=== PATIENT | female | born 1970 | race Caucasian/White ===

== ENCOUNTER 2017-04-19 01:49 | Inpatient (IN) | payer OTHER ==
[2017-04-19] VITALS (7 sets, daily range): BP systolic 143–194; BP diastolic 74–111
[~2017-04-19] VITALS: Ht 157.5 cm; Wt 72.1 kg
[2017-04-19] MEDS ORDERED: ONDANSETRON 4 MG/2 ML VIAL IVP ONE ×2 (02:00→03:15)
[2017-04-19] MEDS ORDERED: NACL 0.9% 1,000 ML IV ONE (02:00)
--- NOTE | 2017-04-19 02:00 | NUR ---
TO ER BED 7
[2017-04-19 02:20] LABS: HEMATOCRIT 48.7 % (36-48); HEMOGLOBIN 16.3 g/dL (12.0-16.0); MEAN CORPUSCULAR HEMOGLOBIN 32 pg (27-31); MEAN CORPUSCULAR HGB CONC 34 g/dL (33-37); MEAN CORPUSCULAR VOLUME 95 fL (80-94); PLATELET COUNT (AUTO) 233 K/uL (140-450); RED BLOOD CELL COUNT(AUTO) 5.14 MIL/uL (4.20-5.40); RED CELL DISTRIBUTION WIDTH 13.8 % (11.6-13.7); WHITE BLOOD COUNT (AUTO) 10.7 K/uL (4.8-10.8)
[2017-04-19 02:33] LABS: LYMPHOCYTES % (MANUAL) 10 % (20-46); MONOCYTES % (MANUAL) 7 % (5-12)
[2017-04-19 02:35] LABS: ALBUMIN 4.2 g/dL (3.4-5.0); ANION GAP 19.1 (8-16); CARBON DIOXIDE 25.8 mmol/L (21-32); CREATININE 1.3 mg/dL (0.6-1.3); TOTAL BILIRUBIN 2.6 mg/dL (0.0-1.0)
[2017-04-19 02:37] LABS: POTASSIUM 1.9 mmol/L (3.5-5.1)
[2017-04-19] MEDS ORDERED: POTASSIUM CHL 20 MEQ/NACL 0.9% 1,000 ML IV ONE ×2 (02:45→03:40)
[2017-04-19 02:48] LABS: PROTHROMBIN TIME 11.6 secs (10.8-13.4)
--- NOTE | 2017-04-19 03:10 | NUR ---
Patient being evaluated by physician at bedside.
[2017-04-19] MEDS ORDERED: MORPHINE SULFATE 4 MG/ML SYR IVP ONE (03:15)
[2017-04-19] MEDS ORDERED: MAG SULF 2000 MG/WATER PREMIX 50 ML IV ONE (03:20)
[2017-04-19] MEDS ORDERED: DOCUSATE SODIUM 100 MG GELCAP PO PRN (03:30)
[2017-04-19] MEDS ORDERED: ONDANSETRON 4 MG/2 ML VIAL IM/IVP PRN (03:30)
[2017-04-19] MEDS ORDERED: ACETAMINOPHEN 325 MG TAB PO PRN (03:30)
[2017-04-19] MEDS ORDERED: PROMETHAZINE 25 MG/ML VIAL IVP ONE (03:35)
--- NOTE | 2017-04-19 03:36 | NUR ---
Patient will be admitted to care of dr. Sherman. Admited to Telemetry. Will go to room 108 A. Belongings list completed.
[2017-04-19] MEDS ORDERED: MORPHINE SULFATE 2 MG/ML SYR IVP PRN (03:40)
[2017-04-19] MEDS ORDERED: NITROGLYCERIN 0.4 MG TAB SL PRN (03:40)
[2017-04-19] MEDS ORDERED: METOPROLOL SUCCINATE 50 MG TABER PO SCH (03:40)
--- NOTE | 2017-04-19 04:25 | NUR ---
Report given to wisam Jett rn.
[2017-04-19] MEDS ORDERED: CHLO25TA33 PO (04:33)
[2017-04-19] MEDS ORDERED: OMEP40EC14 PO (04:33)
[2017-04-19] MEDS ORDERED: ATEN25TA7 PO (04:33)
[2017-04-19] MEDS: NACL 0.9% 1,000 ML IV SCH ×3 (05:03→20:31)
[2017-04-19 05:08] LABS: CHOL/HDL RATIO 4.1 (1-4.5); FREE T4 (FREE THYROXINE) 1.8 ng/dL (0.76-1.46); THYROID STIMULATING HORMONE 4.64 uIU/mL (0.34-3.74)
[2017-04-19] MEDS: LISINOPRIL 20 MG TAB PO SCH ×2 (05:16→09:55)
[2017-04-19 05:21] LABS: PHOSPHORUS 0.9 mg/dL (2.5-4.9)
--- NOTE | 2017-04-19 05:25 | NUR ---
RECEIVED REPORT FROM ED RN FOR CONTINUITY OF CARE. 47 Y.O. FEMALE BROUGHT TO UNIT WITH DX: CHEST PAIN, HYPOKALEMIA. PATIENT IS ALERT AND ORIENTED X4, DISCUSSED PLAN OF CARE WITH PATIENT AND ORIENTED PATIENT TO ROOM. VITAL SIGNS TAKEN, ELEVATED BP NOTED, INFORMED DR. MENDEZ. PATIENT STATES PAIN, WILL MEDICATE PER MD ORDER. NO RESPIRATORY DISTRESS NOTED ON ROOM AIR. IV TO RT FA PATENT AND INFUSING FLUIDS, IV TO LT AC PATENT AND INFUSING FLUIDS WELL. SKIN INTACT, SMALL BUG BITE NOTED TO LLE. PATIENT REFUSED SCDS, PATIENT REFUSED SOCKS, STATES "I AM HOT." WRISTBANDS APPLIED, MRSA SWAB COLLECTED. CALL LIGHT WITHIN REACH, WILL CONTINUE TO MONITOR.
--- NOTE | 2017-04-19 05:29 | NUR ---
RECEIVED CRITICAL LAB RESULT OF PHOSPHORUS=0.9.ENDORSED TO MARY ROMAN.
[2017-04-19] MEDS: MORPHINE SULFATE 2 MG/ML SYR IVP PRN ×3 (05:53→23:28)
[2017-04-19] MEDS: ATORVASTATIN 20 MG TAB PO SCH ×2 (05:53→21:02)
--- NOTE | 2017-04-19 05:53 | NUR ---
PT C/O PAIN AND NAUSEA, MEDICATED PER MD ORDER. INFORMED DR. PALMA OF DIET ORDER NEEDED, PHOSPHORUS LEVEL AND TROPONIN ORDER.
--- NOTE | 2017-04-19 06:30 | NUR ---
INFORMED PATIENT OF NEED FOR URINE SAMPLE AND PLACED CUP AT BEDSIDE, VERBALIZED UNDERSTANDING.
[2017-04-19] MEDS ORDERED: POTASSIUM PHOSPHATE 15 MM in NACL 0.9% 250 ML IV SCH (07:00)
[2017-04-19] MEDS ORDERED: LABETALOL 100 MG/20 ML VIAL IV SCH (07:00)
[2017-04-19 07:15] LABS: HEMATOCRIT 44.9 % (36-48); HEMOGLOBIN 15.1 g/dL (12.0-16.0); MEAN CORPUSCULAR HEMOGLOBIN 32 pg (27-31); MEAN CORPUSCULAR HGB CONC 34 g/dL (33-37); MEAN CORPUSCULAR VOLUME 94 fL (80-94); PLATELET COUNT (AUTO) 197 K/uL (140-450); RED BLOOD CELL COUNT(AUTO) 4.77 MIL/uL (4.20-5.40); RED CELL DISTRIBUTION WIDTH 13.7 % (11.6-13.7); WHITE BLOOD COUNT (AUTO) 7.4 K/uL (4.8-10.8)
--- NOTE | 2017-04-19 07:17 | NUR ---
ENDORSED PATIENT TO DAY RN FOR CONTINUITY OF CARE, PATIENT IS IN STABLE CONDITION.
--- NOTE | 2017-04-19 07:18 | NUR ---
RECEIVED PT FROM MARY ROMAN AT BEDSIDE. PT IS A&OX4. PT IS VOMITING. VOMIT BAG PROVIDED. WILL REPORT TO DR. PT REFUSED SCDS AND SOCKS. PT HAS IV ON L AC 20 G RUNNING POTASSIUM 20MEQ IN NS, R F/A 22 G RUNNING NS@120. WILL CHANGE SHEETS. CALL LIGHT WITHIN REACH. WILL CONTINUE TO MONITOR.
[2017-04-19 07:41] LABS: ANION GAP 10.8 (8-16); CARBON DIOXIDE 32.1 mmol/L (21-32); CREATININE 0.9 mg/dL (0.6-1.3)
[2017-04-19 07:47] LABS: POTASSIUM 1.9 mmol/L (3.5-5.1)
[2017-04-19 07:48] LABS: MAGNESIUM 2.1 mg/dL (1.8-2.4); PHOSPHORUS 4.2 mg/dL (2.5-4.9)
[2017-04-19 08:08] LABS: LYMPHOCYTES % (MANUAL) 5 % (20-46); MONOCYTES % (MANUAL) 4 % (5-12)
[2017-04-19 08:09] LABS: BASOPHILS % (MANUAL) 0 % (0-2); EOSINOPHILS % (MANUAL) 0 % (0-4)
[2017-04-19] MEDS: PANTOPRAZOLE 40 MG TABEC PO SCH (08:18)
[2017-04-19] MEDS: ASPIRIN 81 MG TAB.CHEW PO SCH (08:18)
[2017-04-19] MEDS ORDERED: POTASSIUM CHLORIDE 40 MEQ, LIDOCAINE 1% 25 MG in NACL 0.9% 250 ML IV SCH (09:00)
--- NOTE | 2017-04-19 09:26 | NUR ---
ADDENDUM: SPOKE TO KEV FROM [facility] RE: CRITICAL CXR RESULTS. 4.5 CM ROUNDED OPACITY PROJECTED AT RIGHT LUNG BASE. RESULTS REVIEWED BY ERMD. PATIENT ADMITTED TO TELEMETRY. COPY RESULTS SENT TO THE PRIMARY NURSE TO INFORM PMD OF PATIENT. COPY DELIVERED BY LIFT SUPERVISOR KELLI
--- NOTE | 2017-04-19 09:30 | NUR ---
LASHAWN DONE WITHOUT INCIDENT. RESULTS GIVEN VERBALLY TO ORDERED
[2017-04-19] MEDS: PROMETHAZINE 25 MG/ML VIAL IM PRN ×2 (09:42→18:50)
[2017-04-19] MEDS: ATENOLOL 25 MG TAB PO SCH (09:55)
[2017-04-19] MEDS ORDERED: METOCLOPRAMIDE 10 MG/2 ML INJ VIAL IVP PRN (10:45)
[2017-04-19 11:07] LABS: BARBITURATE, URINE NEG ng/ml (NEG <=200); BENZODIAZEPINE, URINE NEG ng/mL (NEG <=200); CANNABINOID, URINE NEG ng/mL (NEG <=50); COCAINE, URINE NEG ng/mL (NEG <=300); OPIATE, URINE POS ng/mL (NEG <=2000); PHENCYCLIDINE SCREEN,URINE NEG ng/mL (NEG <=25)
--- NOTE | 2017-04-19 11:24 | NUR ---
PT THREW UP IN BED. PT ALSO VOIDED IN BED DUE TO COUGHING. BED CHANGED. CALL LIGHT WITHIN REACH. WILL CONTINUE TO MONITOR.
[2017-04-19 11:59] LABS: APPEARANCE,URINE CLEAR (CLEAR); BILIRUBIN,URINE NEGATIVE (NEGATIVE); BLOOD, URINE NEGATIVE (NEGATIVE); COLOR,URINE YELLOW (YELLOW); LEUKOCYTE ESTERASE ,URINE NEGATIVE (NEGATIVE); NITRITE, URINE NEGATIVE (NEGATIVE); PH,URINE 6.5 (5.0-9.0); UGLUCOSE NEGATIVE (NEGATIVE)
--- NOTE | 2017-04-19 13:40 | NUR ---
RECYCLE WORKER TOOK PT TO CT SCAN IN WHEELCHAIR. PT IN STABLE CONDITION.
[2017-04-19] MEDS ORDERED: hydrALAZINE 20 MG/ML VIAL IVP SCH (13:45)
--- NOTE | 2017-04-19 14:00 | NUR ---
PT CAME BACK FROM CT SCAN. PT IN STABLE CONDITION.
--- NOTE | 2017-04-19 14:22 | NUR ---
TOLD DR. LOJA PT WAS ASKING FOR A MED TO HELP HER SLEEP. DR JARQUIN.
[2017-04-19] MEDS ORDERED: diphenhydrAMINE 50 MG/ML VIAL IVP PRN (14:25)
[2017-04-19] MEDS ORDERED: ZOLPIDEM 5 MG TAB PO PRN (14:25)
--- NOTE | 2017-04-19 16:00 | NUR ---
PT RESTING COMFORTABLY IN BED. SLEEPING. CALL LIGHT WITHIN REACH. WILL CONTINUE TO MONITOR.
[2017-04-19 17:39] LABS: ANION GAP 11.2 (8-16); CREATININE 0.7 mg/dL (0.6-1.3)
[2017-04-19 17:42] LABS: POTASSIUM 2.2 mmol/L (3.5-5.1)
[2017-04-19] MEDS ORDERED: KCL 20 MEQ/WATER INJ PREMIX 200 ML IV SCH (17:55)
[2017-04-19] MEDS ORDERED: KCL 20 MEQ/WATER INJ PREMIX 200 ML IV ONE (18:05)
--- NOTE | 2017-04-19 18:50 | NUR ---
PT BECAME NAUSEATED. PROMETHAZINE IM ADMINISTERED. PT TOLERATED WELL. CALL LIGHT WITHIN REACH. WILL CONTINUE TO MONITOR.
--- NOTE | 2017-04-19 19:25 | NUR ---
ENDORSED CARE OF PT TO MARY ROMAN AT BEDSIDE. PT IN STABLE CONDITION.
--- NOTE | 2017-04-19 19:26 | NUR ---
RECEIVED REPORT FROM DAY RN FOR CONTINUITY OF CARE. PATIENT IS ALERT AND ORIENTED X4, DISCUSSED PLAN OF CARE WITH PATIENT, VERBALIZED UNDERSTANDING. SHIFT ASSESSMENT DONE, VITAL SIGNS TAKEN, STABLE AT THIS TIME. NO RESPIRATORY DISTRESS NOTED ON ROOM AIR. PATIENT DENIES PAIN AT THIS TIME. IV TO RT FA PATENT AND INFUSING FLUIDS, IV TO LT AC PATENT AND INFUSING IVPB. PATIENT REFUSED SCDS. SAFETY PRECAUTIONS ENFORCED, CALL LIGHT WITHIN REACH, WILL CONTINUE TO MONITOR.
--- NOTE | 2017-04-19 21:02 | NUR ---
DUE MEDICATION ADMINISTERED, TOLERATED WELL AND VERBALIZED UNDERSTANDING OF USE. PATIENT RESTING IN BED, CALL LIGHT WITHIN REACH.
--- NOTE | 2017-04-19 23:28 | NUR ---
PATIENT C/O ABDOMINAL PAIN, MEDICATED PER MD ORDER, VITAL SIGNS STABLE. PATIENT AMBULATED TO RESTROOM, VOIDED. CALL LIGHT WITHIN REACH.
[2017-04-19 23:32] LABS: ANION GAP 11.7 (8-16); CARBON DIOXIDE 34.5 mmol/L (21-32); CREATININE 0.7 mg/dL (0.6-1.3)
--- NOTE | 2017-04-19 23:42 | NUR ---
RECEIVED CRITICAL LAB VALUE POTASSIUM, INFORMED MD THAT K IVPB IS STILL INFUSING. PER OK, WILL DO A REDRAW IN MORNING WHEN IT IS FINISHED.
[2017-04-19 23:43] LABS: POTASSIUM 2.2 mmol/L (3.5-5.1)
[2017-04-20] VITALS: BP 155/99
--- NOTE | 2017-04-20 02:00 | NUR ---
PATIENT ASLEEP AT THIS TIME, NO DISTRESS OR DISCOMFORT NOTED. CALL LIGHT WITHIN REACH, SAFETY MEASURES ENFORCED.
[2017-04-20 04:00] VITALS: BP 165/95
[2017-04-20] MEDS: NACL 0.9% 1,000 ML IV SCH ×3 (05:01→18:06)
[2017-04-20] MEDS: MORPHINE SULFATE 2 MG/ML SYR IVP PRN ×4 (05:39→18:02)
[2017-04-20] MEDS: PROMETHAZINE 25 MG/ML VIAL IM PRN (05:39)
--- NOTE | 2017-04-20 05:39 | NUR ---
PT C/O PAIN AND NAUSEA, MEDICATED PER MD ORDER. PATIENT AMBULATED TO RESTROOM ON HER OWN, TOLERATED WELL. CALL LIGHT PLACED WITHIN REACH. WILL CONTINUE TO MONITOR.
[2017-04-20 06:56] LABS: ANION GAP 10.2 (8-16); CARBON DIOXIDE 33.8 mmol/L (21-32); CREATININE 0.6 mg/dL (0.6-1.3)
[2017-04-20 07:01] LABS: MAGNESIUM 1.9 mg/dL (1.8-2.4); PHOSPHORUS 2.7 mg/dL (2.5-4.9)
--- NOTE | 2017-04-20 07:10 | NUR ---
ENDORSED PATIENT TO DAY RN FOR CONTINUITY OF CARE, PATIENT IS IN STABLE CONDITION.
--- NOTE | 2017-04-20 07:11 | NUR ---
RECEIVED REPORT FROM THE NEURORADIOLOGIST NURSE AT BEDSIDE FOR CONTINUITY OF CARE. PT IS SLEEPING. WILL BE BACK TO ASSESS PT.
--- NOTE | 2017-04-20 07:30 | NUR ---
PT AWAKE. INTRODUCED MYSELF AND UPDATED THE BOARD. PT IS AOX4. PT V/S: 166/102, 89, 99%, 18, AND 98.2F. PT STATES SHE IS IN PAIN. 03/09. PT DENIES NAUSEA AT THIS TIME. ASKED ABOUT LAST TIME SHE VOMITED. SHE HAD DRY HEAVES LAST NIGHT. WILL GET HER MORNING MEDS AND PAIN MED.
--- NOTE | 2017-04-20 07:35 | NUR ---
CRITICAL LABS. K 2.0. WILL NOTIFY RESIDENT
[2017-04-20 08:00] VITALS: BP 166/102
--- NOTE | 2017-04-20 08:20 | NUR ---
RESIDENT DRS DOING ROUNDS. IN WITH PT.
[2017-04-20] MEDS: PANTOPRAZOLE 40 MG TABEC PO SCH (08:27)
[2017-04-20] MEDS: ASPIRIN 81 MG TAB.CHEW PO SCH (08:28)
[2017-04-20] MEDS: LISINOPRIL 20 MG TAB PO SCH (08:28)
[2017-04-20] MEDS: ATENOLOL 25 MG TAB PO SCH (08:28)
--- NOTE | 2017-04-20 08:33 | NUR ---
ADMINISTERED MORNING MEDS. GAVE PAIN MED WELL. PT TOLERATED WELL.
[2017-04-20 08:52] LABS: HEMATOCRIT 44.7 % (36-48); MEAN CORPUSCULAR VOLUME 96 fL (80-94); RED BLOOD CELL COUNT(AUTO) 4.68 MIL/uL (4.20-5.40); WHITE BLOOD COUNT (AUTO) 14.3 K/uL (4.8-10.8)
[2017-04-20 08:53] LABS: MEAN CORPUSCULAR HEMOGLOBIN 32 pg (27-31); MEAN CORPUSCULAR HGB CONC 34 g/dL (33-37); PLATELET COUNT (AUTO) 190 K/uL (140-450); RED CELL DISTRIBUTION WIDTH 13.9 % (11.6-13.7)
[2017-04-20 08:56] LABS: LYMPHOCYTES % (MANUAL) 5 % (20-46); MONOCYTES % (MANUAL) 8 % (5-12)
--- NOTE | 2017-04-20 09:00 | NUR ---
PATIENT HAS BEEN SCREENED AND CATEGORIZED MODERATE NUTRITION RISK. PATIENT WILL BE SEEN WITHIN 3-5 DAYS OF ADMISSION. 04/21/17-04/23/[address]
[2017-04-20] MEDS: POTASSIUM CHLORIDE 10 MEQ TABER PO SCH ×3 (10:39→18:02)
--- NOTE | 2017-04-20 10:40 | NUR ---
PT AWAKE. ADMINISTERED KDUR TO PT. PT TOLERATED WELL. REQUESTED PT FOR A URINE SAMPLE. SENT URINE TO LAB. WILL CONTINUE TO MONITOR PT.
[2017-04-20] MEDS ORDERED: POTASSIUM CHLORIDE 40 MEQ, LIDOCAINE 1% 25 MG in NACL 0.9% 250 ML IV SCH (11:30)
[2017-04-20 12:00] VITALS: BP 142/79
--- NOTE | 2017-04-20 12:09 | NUR ---
PT SLEEPING. NO SIGNS OF DISCOMFORT. WILL CONTINUE TO MONITOR PT.
[2017-04-20 12:13] LABS: HEPATITIS A ANTIBODY IGM Negative (Negative); HEPATITIS B CORE AB TOTAL Negative (Negative); HEPATITIS B SURFACE AB Non Reactive (.); HEPATITIS B SURFACE ANTIGEN Negative (Negative)
--- NOTE | 2017-04-20 13:11 | NUR ---
PT WAS SEEN BY DR. ARIZA. STATED TO PT THAT SHE WILL REMAIN NPO UNTIL SHE SEE'S DR. HALL AND ALSO PT WILL NEED TO GET A CT OF HEAD AND NECK W/O CONTRAST. PT VERBALIZED UNDERSTANDING.
--- NOTE | 2017-04-20 13:45 | NUR ---
RADIOLOGY TOOK PT TO GET CT DONE.
--- NOTE | 2017-04-20 15:00 | NUR ---
PT SLEEPING. WILL CONTINUE TO MONITOR PT.
[2017-04-20 16:00] VITALS: BP 142/86
--- NOTE | 2017-04-20 16:29 | NUR ---
PT AMBULATED BACK TO BED FROM THE BATHROOM. I RECONNECTED HER BACK TO HER IV FLUIDS. PT C/O NOISE FROM HER ROOM MATE. "SHE'S LOUD." WILL TALK TO CHARGE NURSE AND SEE IF SHE CAN MOVE TO ANOTHER ROOM.
--- NOTE | 2017-04-20 17:56 | NUR ---
IV INFILTRATED. STARTED A NEW IV ON L WRIST 22G. PT TOLERATED WELL.
--- NOTE | 2017-04-20 19:10 | NUR ---
ENDORSED PT TO THE WAX PUMPER NURSE AT BEDSIDE FOR CONTINUITY OF CARE. PT IS IN STABLE CONDITION. PT WOULD LIKE TO SEE IF SHE CAN TAKE A SHOWER. WAX PUMPER NURSE WILL ASK MD FOR ORDER.
--- NOTE | 2017-04-20 19:30 | NUR ---
RECEIVED REPORT FROM DAY RN AT BEDSIDE, PATIENT IS AAOX4 ON ROOM AIR, NO SOB OR SIGN OF DISTRESS AT THIS TIME, IV TO LEFT WRIST PATENT AND INTACT, SKIN INTACT. PATIENT DENIES PAIN AT THIS TIME, DISCUSSED PLAN OF CARE WITH PATIENT, PT VERBALIZED UNDERSTANDING, CALL LIGHT WITHIN REACH. WILL CONTINUE TO MONITOR.
[2017-04-20 20:00] VITALS: BP 142/87
[2017-04-20] MEDS: ATORVASTATIN 20 MG TAB PO SCH (20:55)
--- NOTE | 2017-04-20 21:01 | NUR ---
PM MEDS ADMINISTERED, PT TOLERATED WELL. PT RESTING IN BED, CALL LIGHT WITHIN REACH. WILL CONTINUE TO MONITOR.
--- NOTE | 2017-04-20 22:50 | NUR ---
DR HALL IN TO SEE PATIENT
[2017-04-20] MEDS: HYDROcodone/APAP 7.5/325 MG 1 TAB PO PRN (23:55)
[2017-04-21] VITALS: BP 140/94
--- NOTE | 2017-04-21 | NUR ---
VITAL SIGNS STABLE, NO SOB OR SIGN OF DISTRESS, PT C/O PAIN IN ABDOMEN, WILL MEDICATE. CALL LIGHT WITHIN REACH. WILL CONTINUE TO MONITOR.
--- NOTE | 2017-04-21 02:35 | NUR ---
PT AWAKE RESTING IN BED, NO SIGN OF DISTRESS, CALL LIGHT WITHIN REACH. WILL CONTINUE TO MONITOR.
[2017-04-21 03:52] VITALS: BP 132/82
--- NOTE | 2017-04-21 04:05 | NUR ---
VITAL SIGNS STABLE, NO SOB OR SIGN OF DISTRESS, CALL LIGHT WITHIN REACH. WILL CONTINUE TO MONITOR.
[2017-04-21] MEDS: NACL 0.9% 1,000 ML IV SCH (04:23)
[2017-04-21] MEDS: MORPHINE SULFATE 2 MG/ML SYR IVP PRN ×3 (05:39→19:55)
[2017-04-21 06:11] LABS: BASOPHILS # (AUTO) 0.1 K/uL (0.00-0.22); EOSINOPHILS # (AUTO) 0.1 K/uL (0-0.4); EOSINOPHILS % (AUTO) 1.2 % (0.0-4.0); HEMATOCRIT 38.9 % (36-48); HEMOGLOBIN 13.3 g/dL (12.0-16.0); LYMPHOCYTES # (AUTO) 1.3 K/uL (2.5-16.5); LYMPHOCYTES % (AUTO) 10.6 % (20.5-51.1); MEAN CORPUSCULAR HEMOGLOBIN 33 pg (27-31); MEAN CORPUSCULAR HGB CONC 34 g/dL (33-37); MEAN CORPUSCULAR VOLUME 97 fL (80-94); MONOCYTES # (AUTO) 0.9 K/uL (0.8-1.0); MONOCYTES % (AUTO) 7.1 % (1.7-9.3); NEUTROPHILS % (AUTO) 80.1 % (42.2-75.2); PLATELET COUNT (AUTO) 138 K/uL (140-450); RED BLOOD CELL COUNT(AUTO) 4.03 MIL/uL (4.20-5.40); RED CELL DISTRIBUTION WIDTH 13.9 % (11.6-13.7); WHITE BLOOD COUNT (AUTO) 12.4 K/uL (4.8-10.8)
[2017-04-21 06:16] LABS: T4 (THYROXINE) 10.4 ug/dL (4.5-12.0)
[2017-04-21 06:33] LABS: ANION GAP 10.3 (8-16); CARBON DIOXIDE 29.6 mmol/L (21-32); CREATININE 0.5 mg/dL (0.6-1.3)
[2017-04-21 06:45] LABS: POTASSIUM 2.9 mmol/L (3.5-5.1)
[2017-04-21 06:50] LABS: MAGNESIUM 1.9 mg/dL (1.8-2.4); PHOSPHORUS 1.9 mg/dL (2.5-4.9)
--- NOTE | 2017-04-21 07:14 | NUR ---
ENDORSED PATIENT TO DAY RN AT BEDSIDE, PATIENT IN STABLE CONDITION
--- NOTE | 2017-04-21 07:15 | NUR ---
RECEIVED REPORT AT BEDSIDE FROM CANDY MAKER NURSE FOR CONTINUITY OF CARE. PT IS AWAKE AND ORIENTED. VS ARE WNL. SKIN IS INTACT. PT IS ON RA. IV ON LEFT WRIST 22G NS AT 120ML/HR. DENIES PAIN AT THIS TIME. DENIES NAUSEA, CHEST PAIN AND VOMITING. WILL CONTINUE TO ASSESS PT.
[2017-04-21 08:00] VITALS: BP 143/85
[2017-04-21] MEDS ORDERED: POTASSIUM PHOSPHATE 15 MM in NACL 0.9% 250 ML IV SCH (08:00)
--- NOTE | 2017-04-21 08:00 | NUR ---
DR. ARIZA CAME BY AND SAW PT. ORDERED CARDIAC DIET, AMBULATION TOLERATED, AND SHOWER FOR PT. DISCONTINUED THIAZIDE DUE TO LOW K. PT MAY BE DISCHARGED TOMORROW.
[2017-04-21] MEDS: ASPIRIN 81 MG TAB.CHEW PO SCH (08:40)
[2017-04-21] MEDS: LISINOPRIL 20 MG TAB PO SCH (08:41)
[2017-04-21] MEDS: PANTOPRAZOLE 40 MG TABEC PO SCH (08:41)
[2017-04-21] MEDS: ATENOLOL 25 MG TAB PO SCH (08:42)
--- NOTE | 2017-04-21 08:45 | NUR ---
ADMINISTERED MORNING MEDS. PT TOLERATED WELL. DENIES PAIN AT THIS TIME.
[2017-04-21] MEDS ORDERED: POTASSIUM CHLORIDE 20% 40 MEQ/15 ML UDC PO SCH (09:00)
[2017-04-21] MEDS ORDERED: CALCIUM CARBONATE 500 MG TAB PO SCH (09:00)
--- NOTE | 2017-04-21 09:40 | NUR ---
LATE MEAL TRAY GIVEN TO PT. WILL CONTINUE TO MONITOR PT.
--- NOTE | 2017-04-21 10:52 | NUR ---
RECEIVED A CALL ON 04/20/17 FROM LUIS CHERRY FROM [facility]. REF NUMBER IS [id number]. INITIAL REVIEW FAXED TO HER AT [phone] PHONE [phone]
[2017-04-21 11:50] VITALS: BP 139/66
--- NOTE | 2017-04-21 11:50 | NUR ---
CHECKED ON PT. PT TOLERATED BREAKFAST. PT IS AWAKE AND AMBULATED TO BATHROOM AND VOIDED. VS ARE WNL. DENIES PAIN AT THIS TIME. K STILL RUNNING IVPB. PT TOLERATING WELL. WILL CONTINUE TO MONITOR.
[2017-04-21 13:32] LABS: ANION GAP 4.6 (8-16); CREATININE 0.7 mg/dL (0.6-1.3); POTASSIUM 3.6 mmol/L (3.5-5.1)
[2017-04-21] MEDS ORDERED: POTASSIUM CHLORIDE 40 MEQ, LIDOCAINE 1% 25 MG in NACL 0.9% 250 ML IV SCH (14:00)
--- NOTE | 2017-04-21 15:00 | NUR ---
PT AMBULATED TO SHOWER ROOM. DAUGHTER ASSISTING PT IN SHOWER ROOM NOW. POTASSIUM PHOSPHATE FINISHED. WILL START K-RIDER PLUS LIDOCAINE WHEN PT GET BACK.
--- NOTE | 2017-04-21 15:35 | NUR ---
PT BACK FROM SHOWER. CONNECTED BACK TO MONITOR AND IV PUMP. STARTED K-RIDER AT 68ML/HR. WILL CONTINUE TO MONITOR PT.
[2017-04-21 16:00] VITALS: BP 155/97
[2017-04-21] MEDS: SODIUM PHOS / POTASSIUM PHOS 1 PKT PDR PO SCH (17:04)
--- NOTE | 2017-04-21 17:04 | NUR ---
ADMINISTERED NEUTRA-PHOS. PT TOLERATED WELL. IV K-RIDER STILL INFUSING IVPB AT 68ML/HR. PT TOLERATING WELL NO COMPLAINTS OF DISCOMFORT. PT AMBULATED TO RESTROOM AND VOIDED. WILL CONTINUE TO MONITOR PT.
--- NOTE | 2017-04-21 19:00 | NUR ---
ENDORSED PT TO SEAFOOD TEAM MEMBER NURSE AT BEDSIDE FOR CONTINUITY OF CARE.
--- NOTE | 2017-04-21 19:30 | NUR ---
RECEIVED REPORT AT BEDSIDE FROM DAY NURSE. PT IS AWAKE AND ORIENTED. SKIN IS INTACT, BUT PT HAS BRUISES ON UPPER ARMS AND ON LEFT FOREARM. IV ON LEFT WRIST 22G RUNNING NS AT 120ML/HR, INTACT. PT IS IN STABLE CONDITION, THERE ARE NO SIGNS OF DISTRESS. PT IS ON ROOM AIR. BED IN LOW POSITION, CALL LIGHT WITHIN REACH. WILL CONTINUE TO MONITOR.
[2017-04-21] MEDS ORDERED: SIMETHICONE 40 MG/0.6 ML PO SCH (19:50)
[2017-04-21 20:00] VITALS: BP 155/93
[2017-04-21] MEDS: ATORVASTATIN 20 MG TAB PO SCH (20:00)
--- NOTE | 2017-04-21 20:03 | NUR ---
PM MEDS GIVEN TO PATIENT PER MD ORDER. PT REQUESTED PAIN MEDICATION, MORPHINE WAS ADMINISTERED PER MD ORDERS. WILL REASSESS PAIN. PATIENT TOLERATED WELL. PATIENT STABLE ON ROOM AIR, NO SIGNS OF DISTRESS. BED IN LOW POSITION, CALL LIGHT WITHIN REACH. WILL CONTINUE TO MONITOR.
[2017-04-21] MEDS: CALCIUM CARBONATE 500 MG TAB PO SCH (21:00)
[2017-04-22] VITALS: BP 141/80
--- NOTE | 2017-04-22 00:53 | NUR ---
PT REQUESTED HEATING PADS FOR BACK AND ABDOMINAL PAIN. DR MCCOY WROTE ORDER FOR HEATING PADS. WILL APPLY WHEN AVAILABLE. PT IS RESTING IN BED. BED IN LOW POSITION, CALL LIGHT WITHIN REACH. WILL CONTINUE TO MONITOR.
[2017-04-22] MEDS: MORPHINE SULFATE 2 MG/ML SYR IVP PRN (02:54)
--- NOTE | 2017-04-22 02:55 | NUR ---
HEATING PAD ARRIVED. SET IT UP FOR PATIENT. PATIENT REQUESTED PAIN MEDICATION, AND MORPHINE WAS GIVEN PER MD ORDER. PT TOLERATED WELL. PT IS STABLE, NO SIGNS OF DISTRESS NOTED. BED IN LOW POSITION, CALL LIGHT WITHIN REACH. WILL CONTINUE TO MONITOR.
[2017-04-22 04:00] VITALS: BP 151/114
--- NOTE | 2017-04-22 05:21 | NUR ---
PT IS RESTING. PT IS STABLE, NO DISTRESS NOTED. BED IN LOW POSITION, CALL LIGHT WITHIN REACH. WILL CONTINUE TO MONITOR.
[2017-04-22] MEDS: NACL 0.9% 1,000 ML IV SCH (05:30)
[2017-04-22 06:19] LABS: BASOPHILS # (AUTO) 0.1 K/uL (0.00-0.22); BASOPHILS % (AUTO) 0.7 % (0.0-2.0); EOSINOPHILS # (AUTO) 0.1 K/uL (0-0.4); EOSINOPHILS % (AUTO) 1.4 % (0.0-4.0); HEMATOCRIT 40.3 % (36-48); HEMOGLOBIN 13.5 g/dL (12.0-16.0); LYMPHOCYTES # (AUTO) 1.3 K/uL (2.5-16.5); MEAN CORPUSCULAR HEMOGLOBIN 32 pg (27-31); MEAN CORPUSCULAR HGB CONC 34 g/dL (33-37); MEAN CORPUSCULAR VOLUME 96 fL (80-94); MONOCYTES % (AUTO) 10.1 % (1.7-9.3); NEUTROPHILS # (AUTO) 7.3 K/uL (1.8-7.7); NEUTROPHILS % (AUTO) 74.8 % (42.2-75.2); PLATELET COUNT (AUTO) 161 K/uL (140-450); RED BLOOD CELL COUNT(AUTO) 4.18 MIL/uL (4.20-5.40); RED CELL DISTRIBUTION WIDTH 13.8 % (11.6-13.7); WHITE BLOOD COUNT (AUTO) 9.8 K/uL (4.8-10.8)
[2017-04-22 07:20] LABS: ANION GAP 8.9 (8-16); CARBON DIOXIDE 30.6 mmol/L (21-32); CREATININE 0.6 mg/dL (0.6-1.3); POTASSIUM 3.5 mmol/L (3.5-5.1)
[2017-04-22 07:25] LABS: MAGNESIUM 1.8 mg/dL (1.8-2.4); PHOSPHORUS 2.3 mg/dL (2.5-4.9)
[2017-04-22] MEDS: SODIUM PHOS / POTASSIUM PHOS 1 PKT PDR PO SCH (07:30)
--- NOTE | 2017-04-22 07:30 | NUR ---
ENDORSED PT TO DAY SHIFT NURSE. PT STABLE, NO SIGNS OF DISTRESS. BED IN LOW POSITION, CALL LIGHT WITHIN REACH. WILL CONTINUE TO MONITOR
--- NOTE | 2017-04-22 07:32 | NUR ---
ENDORSED PATIENT TO DAY RN AT BEDSIDE, PATIENT IN STABLE CONDITION
--- NOTE | 2017-04-22 07:33 | NUR ---
RECEIVED PT FROM IRMA AND STEFANY ROMAN AT BEDSIDE. PT IS A&OX4. PT HAS IV ON L WRIST 22 G RUNNING NS@10. NO DISTRESS NOTED. PT HAS NO COMPLAINTS. CALL LIGHT WITHIN REACH. WILL CONTINUE TO MONITOR.
--- NOTE | 2017-04-22 07:52 | NUR ---
DR MADE ROUNDS AND EXPLAINED DC PLAN. PT VERBALIZED UNDERSTANDING. CALL LIGHT WITHIN REACH. WILL CONTINUE TO MONITOR.
[2017-04-22 08:00] VITALS: BP 151/93
[2017-04-22] MEDS ORDERED: SODIUM PHOS / POTASSIUM PHOS 1 PKT PDR PO SCH (08:00)
[2017-04-22] MEDS: ASPIRIN 81 MG TAB.CHEW PO SCH (08:07)
[2017-04-22] MEDS: LISINOPRIL 20 MG TAB PO SCH (08:07)
[2017-04-22] MEDS: PANTOPRAZOLE 40 MG TABEC PO SCH (08:08)
[2017-04-22] MEDS: CALCIUM CARBONATE 500 MG TAB PO SCH (08:08)
[2017-04-22] MEDS: ATENOLOL 25 MG TAB PO SCH (08:08)
[2017-04-22] MEDS: HYDROcodone/APAP 7.5/325 MG 1 TAB PO PRN (08:15)
[2017-04-22] MEDS ORDERED: POTASSIUM CHLORIDE 10 MEQ TABER PO SCH (09:00)
[2017-04-22] MEDS ORDERED: ATOR20TA40 PO (09:04)
[2017-04-22] MEDS ORDERED: LISI-420 PO (09:04)
[2017-04-22] MEDS ORDERED: ONDA4TAB PO (09:04)
[2017-04-22 09:15] VITALS: BP 151/93
[2017-04-22] MEDS ORDERED: IBUP-2213 PO (09:18)
--- NOTE | 2017-04-22 09:36 | NUR ---
PT SIGNED ALL DC PAPERWORK AND VERBALIZED UNDERSTANDING. NOTE PROVIDED FOR WORK. DISCONNECTED PT FROM IVF SO PT CAN GET DRESSED. PT WILL CALL NURSE WHEN READY TO LEAVE.
--- NOTE | 2017-04-22 10:30 | NUR ---
IV REMOVED CANNULA INTACT. ALL BANDS CUT OFF. ACCOMPANIED BY AND DAUGHTER, PT REFUSED WHEELCHAIR, WALKED WITH PT OUT OF HOSPITAL. PT IN STABLE CONDITION, TOOK ALL BELONGINGS.
--- NOTE | 2017-04-22 10:43 | NUR ---
CM NOTE CONCURRENT REVIEW FAXED TO [employer] / FAX# [phone], ATTN: LUIS CANDELARIO #[phone]
[2017-04-23] MEDS ORDERED: ATEN25TA7 PO (15:57)
== END 2017-04-22 10:30 | disposition home or self-care (01) | DRG 391 ==
LOC: MED 01:49 → MTU 03:36
PROVIDERS: ADMIT Family Medicine; ATTEND Family Medicine
DX: K21.9 Gastro-esophageal reflux disease without esophagitis (principal); N17.0 Acute kidney failure with tubular necrosis; E87.3 Alkalosis; Q79.0 Congenital diaphragmatic hernia; E83.42 Hypomagnesemia; E87.6 Hypokalemia; E83.39 Other disorders of phosphorus metabolism; I16.0 Hypertensive urgency; I10 Essential (primary) hypertension; F17.210 Nicotine dependence, cigarettes, uncomplicated; T50.2X5A Adverse effect of carbonic-anhydrase inhibitors, benzothiadiazides and other diuretics, initial encounter; R11.10 Vomiting, unspecified; E87.8 Other disorders of electrolyte and fluid balance, not elsewhere classified; K80.20 Calculus of gallbladder without cholecystitis without obstruction; E78.5 Hyperlipidemia, unspecified; E83.51 Hypocalcemia; E03.9 Hypothyroidism, unspecified; Z91.14 Patient's other noncompliance with medication regimen
CPT/HCPCS: 36415; 36600; 70450; 70490; 71010; 71260; 76830; 80048; 80053; 80305; 81003; 82150; 82803; 83036; 83690; 83735; 83880; 84100; 84436; 84439; 84443; 84479; 84484; 85025; 85610; 85730; 86704; 86706; 86708; 86709; 86803; 87081; 87340; 93005; 96361; 96365; 96366; 96368; 96375; 96376; 99285; J0360; J2001; J2270; J2405; J2550; J3475; J3480; J3490; J7030; Q0092; Q9967